=== PATIENT | male | born 1955 | race Caucasian/White ===

== ENCOUNTER 2017-02-15 07:06 | Emergency (ER) | payer BC ==
--- NOTE | ~2017-02-15 | ER ---
PATIENT'S NAME: AMANDA [facility] AGE: 61 Y [address] ROOM: [place] [address] LOCATION: ED ADMIT DATE: 02/15/2017 ER/Outpatient Report DISCHARGE DATE: 02/15/2017 FAMILY PHYSICIAN: Jamal Pastrana MD ATTENDING PHYSICIAN: Eamon Snyder Time of Arrival: Time of Evaluation: Admission date and time documented in the medical record. I saw the patient at 0715 hours. CHIEF COMPLAINT: Left flank pain. HISTORY OF PRESENT ILLNESS: This patient is a 61-year-old male, who around 0300 hours this morning, who was woken out of sleep with left flank pain. He has some nausea, but no vomiting. No diarrhea. Had about 4 or 5 small bowel movements today. Does have a history of kidney stones. He presented to the emergency room by a private vehicle for evaluation for possible kidney stone. He states the pain is consistent with what he has noted before when he was passing a kidney stone. No chest pain, shortness of breath. No back pain. No headache, eyes, ears, nose, throat, neck, or spine pain. No fall or trauma. No recent coughs, colds, flus, fever, chills, or sweats. No lightheadedness, dizziness, syncope, or near syncope. No urinary frequency, urgency, or dysuria. No joint or muscle swelling, redness, or pain. No skin eruptions or rash. No endocrine problems, neurological changes, or psychiatric issues. HOME MEDICATIONS: See attached medication list. ALLERGIES: MORPHINE, LORTAB, AND PENICILLIN. SOCIAL HISTORY: Nonsmoker and nondrinker. SIGNIFICANT PAST MEDICAL HISTORY: 1. Nephrolithiasis. 2. Bladder cancer. 3. Degenerative joint disease. 4. Degenerative osteoarthritis. PAST SURGICAL HISTORY: Operations: 1. Total knee arthroplasty. PATIENT'S NAME: AMANDA [facility] AGE: 61 Y [address] ROOM: [place] [address] LOCATION: [facility] ADMIT DATE: 02/15/2017 ER/Outpatient Report DISCHARGE DATE: 02/15/2017 FAMILY PHYSICIAN: Jamal Pastrana MD ATTENDING PHYSICIAN: Eamon Snyder 2. Colonoscopy. 3. Cystoscopy with extraction of kidney stone. REVIEW OF SYSTEMS: All systems reviewed by me are negative with the exception of those discussed in the History of the Present Illness. PHYSICAL EXAMINATION: VITAL SIGNS: Temperature 97.5, tympanic; pulse 81; respiratory rate 17; blood pressure 175/82; and O2 saturation on room air was 98%. HEENT: Head; normocephalic. Eyes, Ears, Nose, Throat: Clear. Mucous membranes moist. NECK: Negative. SPINE: Negative. LUNGS: Clear. No rales, rhonchi, or wheezes. HEART: Regular. Pulses are palpable. ABDOMEN: Soft. Some tenderness in the left flank to palpation. Bowel tones present. No organomegaly or abnormal masses palpable. No true CVA tenderness. EXTREMITIES: Intact. NEUROLOGIC: Neurovascularly intact. SKIN: Clear. No skin eruptions or rash. LABORATORY DATA: White count was 7700, 78 segs, 15 lymphs, 5 monos, 1 eo, 1 baso, hemoglobin is 12.4 with a hematocrit of 38.2, and platelet count was 223,000. CMS was negative except for an elevated chloride of 111, elevated glucose of 127, elevated creatinine of 1.4, and a low GFR of 51. CT scan of the abdomen and pelvis with renal stone protocol showed a 3.5 mm proximal left ureteral stone without hydronephrosis or collecting system obstruction. Does have bilateral intrarenal stones. CT scan was read by Radiology, see dictated transcribed report. EMERGENCY DEPARTMENT COURSE: I did give the patient some IV normal saline, fluids, and given Toradol 30 mg IV in the emergency room for pain. 4 mg of Zofran IV in the emergency room for nausea. Flomax 0.4 mg orally in the emergency department. The patient dismissed to home. Observation. Activity as tolerated. Fluids and diet as tolerated. Continue present home medications and care. Flomax 0.4 mg 1 orally daily, #10, strain urine. Follow up with personal physician as needed. Follow up with the urologist if needed. Discussion ensued with the patient concerning my findings and recommendations, he understands. PATIENT'S NAME: AMANDA [facility] AGE: 61 Y [address] ROOM: [place] [address] LOCATION: ED ADMIT DATE: 02/15/2017 ER/Outpatient Report DISCHARGE DATE: 02/15/2017 FAMILY PHYSICIAN: Jamal Pastrana MD ATTENDING PHYSICIAN: Eamon Snyder EAMON SNYDER MD SDS/modl /[id number] d: 02/15/17 1433 t: 02/16/17 0611, OUTPATIENT REPORT
[2017-02-15 07:41] LABS: BILIRUBIN URINE NEGATIVE (NEGATIVE); BLOOD URINE NEGATIVE /UL (NEGATIVE); COLOR URINE YELLOW (YELLOW); GLUCOSE URINE NEGATIVE (NEGATIVE); KETONE URINE 5 mg/dL (NEGATIVE); LEUKOCYTES URINE 25 /UL (NEGATIVE); NITRITE URINE NEGATIVE (NEGATIVE); PROTEIN URINE 30 mg/dL (NEGATIVE); TURBIDITY URINE CLEAR (CLEAR); UROBILINOGEN URINE 1 mg/dL (NORMAL)
[2017-02-15 07:48] LABS: AMORPHOUS URINE 1+ (NEGATIVE); BACTERIA URINE NEGATIVE (NEGATIVE); CRYSTALS URINE CALCIUM OXALATE (NEGATIVE); HYALINE CAST URINE RARE #/LPF (NEGATIVE); MUCUS URINE 2+ (NEGATIVE); RBC URINE RARE #/HPF (NEGATIVE)
[2017-02-15 07:50] LABS: BASOPHIL % 0.5 %; EOSINOPHIL # 0.1 K/uL (0.0-0.5); EOSINOPHIL % 0.8 %; HEMATOCRIT 38.2 % (37.0-53.0); HEMOGLOBIN 12.4 g/dL (11.0-16.0); IMMATURE GRANULOCYTE % 0.4 %; LYMPHOCYTE # 1.1 K/uL (0.8-4.0); LYMPHOCYTE % 14.8 %; MCH 29.1 pg (27.0-34.0); MCHC 32.5 gm/dL (32.0-36.5); MCV 89.7 fl (83.0-98.0); MONOCYTE # 0.4 K/uL (0.0-1.0); MONOCYTE % 5.1 %; NEUTROPHIL % 78.4 %; NRBC % 0 /100WBC (0-0.00); PLATELET COUNT 223 K/uL (150-450); RBC 4.26 M/uL (3.50-5.50); RDW-CV 13.3 % (11.9-14.6); WBC 7.7 K/uL (4.0-11.0)
[2017-02-15 08:16] LABS: ALBUMIN 4.2 gm/dL (3.5-5.0); ANION GAP 14.2 (10.0-19.0); CALCIUM 9.6 mg/dL (8.5-10.5); CREATININE 1.4 mg/dL (0.6-1.3); POTASSIUM 4.2 mMol/L (3.7-5.1); TOTAL BILIRUBIN 0.4 mg/dL (0.0-1.5)
[2017-02-15] MEDS ORDERED: SIMBRINZA 1%-0.28 ML OPHTH (13:37)
[2017-02-15] MEDS ORDERED: TIMOPTIC XE 0.5%5 ML OPHTH (13:38)
[2017-02-15] MEDS ORDERED: XALATAN2.5 ML OPHTH (13:39)
[2017-02-15] MEDS ORDERED: ASPIRIN325 MG PO (13:39)
[2017-02-15] MEDS ORDERED: MULTI VITAMIN1 EACH PO (13:39)
[2017-02-15] MEDS ORDERED: VITAMIN C1000 MG PO (13:40)
[2017-02-15] MEDS ORDERED: TYLENOL EXTRA500 MG PO (14:00)
[2017-02-15] MEDS ORDERED: ULTRAM50 MG PO (14:00)
== END 2017-02-15 09:29 | disposition disaster alternative care site (69) ==
LOC: GMED 07:06
PROVIDERS: Emergency Medicine
DX: N20.2 Calculus of kidney with calculus of ureter (principal); Z88.0 Allergy status to penicillin; Z88.5 Allergy status to narcotic agent; Z96.659 Presence of unspecified artificial knee joint; Z87.442 Personal history of urinary calculi; Z79.899 Other long term (current) drug therapy; Z79.82 Long term (current) use of aspirin
CPT/HCPCS: J1170; J1885; J2405; J3010; J7030

== ENCOUNTER → 2017-02-16 | Day surgery (SDC) | payer BC ==
[~2017-02-16] VITALS: Ht 188 cm; Wt 103.4 kg
[~2017-02-16] MED LIST: ASPIRIN325 MG PO; MULTI VITAMIN1 EACH PO; SIMBRINZA 1%-0.28 ML OPHTH; TIMOPTIC XE 0.5%5 ML OPHTH; TYLENOL EXTRA500 MG PO; ULTRAM50 MG PO; VITAMIN C1000 MG PO; XALATAN2.5 ML OPHTH
--- NOTE | ~2017-02-16 | OR ---
PATIENT'S NAME: AMANDA EMANUEL [facility] AGE: 61 Y [address] ROOM: [place] [address] LOCATION: [facility] [place] ADMIT DATE: 02/16/2017 OR/Procedure Report DISCHARGE DATE: FAMILY PHYSICIAN: Jamal Pastrana MD ATTENDING PHYSICIAN: Julio Soares SURGEON: Julio Soares MD TRAINING ASSOCIATE: DATE OF PROCEDURE: 02/16/2017 PREOPERATIVE DIAGNOSES: 1. Symptomatic left ureteral calculus. 2. Left renal calculus. 3. Remote history of urothelial carcinoma. 4. Remote history of a predominantly calcium oxalate stone disease. POSTOPERATIVE DIAGNOSES: 1. Symptomatic left ureteral calculus. 2. Left renal calculus. 3. Remote history of urothelial carcinoma. 4. Remote history of a predominantly calcium oxalate stone disease. PROCEDURES PERFORMED: 1. Cystoscopy with left ureteroscopy and stone basket extraction. 2. Left ureteral stent placement. 3. Left extracorporeal shock wave lithotripsy. ANESTHESIA: Sedation. INDICATION: This is a 61-year-old gentleman with the above-noted diagnoses. He had the acute onset of pain recently. I saw him in the office. He has a symptomatic and obstructing left proximal ureteral calculus. He also has a 6 to 7 mm nonobstructing stone in the left collecting system. He presents at this time for intervention. Our plan will be to simply stent him and proceed with lithotripsy of the 3.5 mm stone that remains in the proximal third. If it has moved down, we will get it out, place a stent and proceed with lithotripsy. Having been through this before, the patient understands the plan as well as the attendant risks and benefits. His last stone intervention was in 2007. DESCRIPTION OF PROCEDURE: Having obtained his informed consent, the patient was taken to the cystoscopy suite. He was prepped and draped sterilely and in lithotomy position. IV sedation was administered. The 21-[place] cystoscope was assembled and guided into the urethra. The course of the urethra was unremarkable. He has some prostatic hypertrophy. Moving on the bladder, we find no tumor, stones, or foreign bodies. With his history of urothelial PATIENT'S NAME: AMANDA EMANUEL [facility] AGE: 61 Y [address] ROOM: [place] [address] LOCATION: [facility] [place] ADMIT DATE: 02/16/2017 OR/Procedure Report DISCHARGE DATE: FAMILY PHYSICIAN: Jamal Pastrana MD ATTENDING PHYSICIAN: Julio Soares carcinoma, we took a good look around with the 30- and 70-degree lenses. I find no mucosal lesions. Under preliminary survey with fluoroscopy, I can see the nonobstructing stone nicely. It appears to me that the symptomatic stone was moved into the distal third. I wanted to avoid contrast with our plan for lithotripsy. Therefore, I passed a wire up the left side. Indeed, it bounces against the stone on the distal third. We got it manipulated beyond and there was a gush of retained fluid and debris. With that finding, I passed a balloon dilator over the wire. The orifice and intramural tunnel were dilated. I then passed the semi-rigid ureteroscope to the level of the stone. It was engaged in a nitinol basket and extracted. It will be sent for analysis as he has not had a stone analysis for over 9 years. My safety wire was back-loaded into the cystoscope. Over that, I passed a 4.8 multi-length contour stent. We have a nice level of placement cystoscopically and fluoroscopically. The patient is transferred to the lithotripsy suite. The stone was brought in the second focal point of the ellipsoid and fragmentation was begun. We started at 14 kV and worked up to a maximum of 22 kV. A total of 3000 impulses were administered. The patient tolerated the procedures well. Blood loss was negligible. The stone was sent for analysis. The patient returned to the outpatient recovery awake and stable condition. PLAN: The plan will be to follow him up in 2 to 3 weeks' time for stent removal. He will be in touch in the meantime if he has any questions or concerns. JULIO SOARES MD [facility]/modl /[id number] CC: Jamal Pastrana MD d: 02/16/17 2228 t: 02/19/17 1521, OPERATIVE SUMMARY
== END | disposition disaster alternative care site (69) ==
LOC: GPOC 02-15 14:00 → GSDC 10:22 → GPOC 14:00
PROC: 0TF78ZZ Fragmentation in Left Ureter, Via Natural or Artificial Opening Endoscopic (ICD-10-PCS; principal; 2017-02-16)
PROC: 0T778DZ Dilation of Left Ureter with Intraluminal Device, Via Natural or Artificial Opening Endoscopic (ICD-10-PCS; 2017-02-16)
PROC: 0TF4XZZ Fragmentation in Left Kidney Pelvis, External Approach (ICD-10-PCS; 2017-02-16)
DX: N20.2 Calculus of kidney with calculus of ureter (principal); M19.90 Unspecified osteoarthritis, unspecified site; Z85.51 Personal history of malignant neoplasm of bladder; Z87.891 Personal history of nicotine dependence; Z96.659 Presence of unspecified artificial knee joint; Z88.0 Allergy status to penicillin; Z88.8 Allergy status to other drugs, medicaments and biological substances; Z98.890 Other specified postprocedural states
CPT/HCPCS: C1725; C1769; C2617; J1100; J1956; J2405; J7030